=== PATIENT | female | born 1990 | race Caucasian/White ===

== ENCOUNTER 2016-12-15 10:29 | Emergency (ER) | payer OTHER ==
[2016-12-15 10:37] VITALS: BP 107/62; PULSE 106; TEMP 98.8; BMI 32.2
--- NOTE | 2016-12-15 11:10 | PDOC ---
History of Present Illness - General Chief Complaint: Cold Symptoms Stated Complaint: FEVER, BODYACHES Time Seen by Provider: 12/15/16 10:49 History Source: Patient Exam Limitations: No Limitations - History of Present Illness Initial Comments: CHIEF COMPLAINT: 26 y/o afebrile female with no significant PMH c/o bodyaches, fever and dry cough since yesterday. HISTORY OF PRESENT ILLNESS: The patient states that she feels like she has the flu and did not receive the flu shot. Her 1 year old has similar symptoms at home. The patient has not taken anything for her symptoms. She denies earache, BERRY, n/v/d, CP, SOB, abd pain. Vital signs on arrival are within normal limits. REVIEW OF SYSTEMS: GENERAL/CONSTITUTIONAL: +fever to 102. +body aches. No weakness. No weight change. HEAD, EYES, EARS, NOSE AND THROAT: No change in vision. No ear pain or discharge. No sore throat. CARDIOVASCULAR: No chest pain or shortness of breath. RESPIRATORY: +dry cough. No wheezing, or hemoptysis. GASTROINTESTINAL: No abd pain, nausea, vomiting, diarrhea. GENITOURINARY: No dysuria, frequency, or change in urination. MUSCULOSKELETAL: No joint or muscle swelling or pain. No neck or back pain. SKIN: No rash or easy bruising. NEUROLOGIC: No headache, vertigo, loss of consciousness, or loss of sensation. PHYSICAL EXAM: GENERAL: The patient is awake, alert, and fully oriented, non toxic but ill appearing. HEAD: Normal with no signs of trauma. ENT: Pupils equal, round and reactive to light, extraocular movements intact, sclera anicteric, conjunctiva clear. Neck supple. No tonsilar erythema or edema. +nasal congestion. LUNGS: Clear to auscultation bilaterally. Normal excursion. No respiratory distress or use of accessory muscles. CV: RRR, S1/S2, no MRG. Cap refill < 2 sec. ABDOMEN: Soft, non-distended, non-tender even to deep palpation, no hepatomegaly or splenomegaly, no masses. EXTREMITIES: Normal range of motion, no edema. NEUROLOGICAL: Normal speech, normal gait. CN II-XII grossly intact. PSYCH: Normal mood, normal affect. SKIN: Warm, dry, normal turgor, no rashes or lesions noted. Past History - Past Medical History Allergies/Adverse Reactions: Allergies Allergy/AdvReac Type Severity Reaction Status Date / Time No Known Allergies Allergy Verified 12/15/16 10:33 Home Medications: Ambulatory Orders NK [No Known Home Medication] 12/15/16 Asthma: No Cancer: No Cardiac Disorders: No Diabetes: No HTN: No Seizures: No Thyroid Disease: No - Reproductive History (#): 1 Para: 1 Cervical CA: No Dysfunctional Uterine Bleeding: No Ectopic : No Endometrial CA: No Polycystic Ovaries: No Therapeutic (s) & number: No Tubal Ligation: No Spontaneous : 0 - Psycho/Social/Smoking Cessation Hx Anxiety: No Suicidal Ideation: No Smoking Status: Yes Smoking History: Never smoked Have you smoked in the past 12 months: No Number of Cigarettes Smoked Daily: 0 Information on smoking cessation initiated: No Hx Alcohol Use: No Drug/Substance Use Hx: No Substance Use Type: None Hx Substance Use Treatment: No *Physical Exam - Vital Signs Last Vital Signs Temp Pulse Resp BP Pulse Ox 98.8 F 106 H 18 107/62 100 12/15/16 10:33 12/15/16 10:33 12/15/16 10:33 12/15/16 10:33 12/15/16 10:33 Medical Decision Making - Medical Decision Making A/P: 26 y/o afebrile female with flu symptoms. Plan is as follows: 1. Influenza Influenza A&B - negative Will give tylenol for pain Patient given results. Suspect she has a viral URI. Suggested she take tylenol and or Motrin for fever/body aches. Instructed her to take OTC cough medicine if needed, get plenty of rest and fluids and f/;u with her doctor within 1 week. Instructed her to return to the ER with any worsening or concerning symptoms. The patient verbalizes understanding of all instructions, has no further questions and is awaiting discharge. *DC/Admit/Observation/Transfer Diagnosis at time of Disposition: Viral upper respiratory tract infection with cough - Discharge Dispostion Disposition: HOME Condition at time of disposition: Good - Patient Instructions Printed Discharge Instructions: DI for Viral Upper Respiratory Infection -- Adult Additional Instructions: Discharge Instructions: -Your flu swab was negative -Take Tylenol and/or Motrin for fever/body aches -You can take an over the counter cough medicine if needed -Get plenty of rest and drink lots of fluids -Follow up with your doctor within 1 week -Return to the ER with any worsening or concerning symptoms. - Post Discharge Activity Work/School Note: Back to Work
[2016-12-15] MEDS ORDERED: ACETAMINOPHEN 325 MG TABLET (FP) ONE (12:01)
[2016-12-15] MEDS ORDERED: ACETAMINOPHEN 325 MG TABLET (FP) PO ONE (12:02)
== END 2016-12-15 12:15 | disposition home or self-care (01) ==
LOC: JERFT 10:29
DX: J06.9 Acute upper respiratory infection, unspecified (principal); B97.89 Other viral agents as the cause of diseases classified elsewhere
CPT/HCPCS: 87804; 99281-25

== ENCOUNTER 2020-12-17 14:44 | Emergency (ER) | payer OTHER ==
[2020-12-17 14:53] VITALS: BP 129/66; PULSE 95; TEMP 98.5; BMI 40.6
[2020-12-17] MEDS ORDERED: KETOROLAC TROMETHAMINE 60 MG/2 ML VIAL IM ONE (16:05)
[2020-12-17] MEDS ORDERED: morphine CARPU-JECT 4 MG/1 ML DISP.SYRIN IVPUSH ONE (16:06)
[2020-12-17] MEDS ORDERED: morphine CARPU-JECT 4 MG/1 ML DISP.SYRIN IM ONE (16:13)
[2020-12-17] MEDS ORDERED: KETOROLAC TROMETHAMINE 60 MG/2 ML VIAL ONE (16:14)
[2020-12-17] MEDS ORDERED: morphine SULFATE 4 MG/ML VIAL ONE (16:16)
[2020-12-17] MEDS ORDERED: IBUPROFEN 400 MG TABLET (FP) PO ONE ×2 (16:18→16:42)
== END 2020-12-17 16:55 | disposition home or self-care (01) ==
LOC: JERFT 14:44
DX: M79.604 Pain in right leg (principal); M79.605 Pain in left leg
CPT/HCPCS: 99283-25

== ENCOUNTER 2024-04-11 16:26 | Emergency (ER) | payer OTHER ==
[2024-04-11 16:35] VITALS: BP 122/70; PULSE 103; RESP 18; TEMP 98.8; BMI 43.0
[2024-04-11] MEDS ORDERED: METOCLOPRAMIDE HCL INJECTION 10 MG/2 ML VIAL ONE (17:47)
[2024-04-11] MEDS ORDERED: KETOROLAC TROMETHAMINE 15 MG/ML VIAL ONE (17:47)
[2024-04-11] MEDS ORDERED: MAGNESIUM SULFATE IN WATER 2 GM/50 ML IVPB IVPB ONE (17:47)
[2024-04-11] MEDS: KETOROLAC TROMETHAMINE 15 MG/ML VIAL IVPUSH ONE (18:05)
[2024-04-11] MEDS: METOCLOPRAMIDE HCL INJECTION 10 MG/2 ML VIAL IVPUSH ONE (18:10)
[2024-04-11] MEDS: SODIUM CHLORIDE 1,000 ML IV STA (18:15)
[2024-04-11] MEDS: MAGNESIUM SULF 50% (8.12 MEQ/2 ML-1 GM VIAL) IVPB ONE (18:15)
[2024-04-11 18:24] LABS: BASO % 0.4 % (0-2.0); EOS % 0.7 % (0-4.5); HEMATOCRIT 37.5 % (32.4-45.2); HEMOGLOBIN 12.5 GM/dL (10.7-15.3); LYMPH % 27.1 % (8-40); MCH 28.5 pg (25.7-33.7); MCHC 33.4 g/dl (32.0-36.0); MEAN CELL VOLUME 85.2 fl (80-96); MEAN PLT VOLUME 7.9 fl (7.5-11.1); MONO % 5.8 % (3.8-10.2); PLATELET COUNT 347 10^3/uL (134-434); WHITE BLOOD COUNT 8.2 K/mm3 (4.0-10.0)
[2024-04-11 18:33] LABS: INR 1.04 (0.83-1.09)
[2024-04-11 18:35] LABS: ACTIVATED PTT 32.1 SECONDS (25.2-36.5)
[2024-04-11 18:53] LABS: POTASSIUM 3.8 mmol/L (3.5-5.1)
[2024-04-11 18:54] LABS: CALCIUM 9.5 mg/dL (8.5-10.1)
[2024-04-11 18:55] LABS: ALBUMIN 3.8 g/dl (3.4-5.0); BLOOD UREA NITROGEN 12.5 mg/dL (7-18); MAGNESIUM 2.2 mg/dL (1.8-2.4)
[2024-04-11 18:59] LABS: BILIRUBIN,TOTAL 0.2 mg/dL (0.2-1); CREATININE 0.9 mg/dL (0.55-1.3)
[2024-04-11 19:00] LABS: TOT PROT 7.6 g/dl (6.4-8.2)
== END 2024-04-11 21:33 | disposition home or self-care (01) ==
LOC: JER 16:26
PROC: 3E0333Z Introduction of Anti-inflammatory into Peripheral Vein, Percutaneous Approach (ICD-10-PCS; principal; 2024-04-11)
PROC: 3E033GC Introduction of Other Therapeutic Substance into Peripheral Vein, Percutaneous Approach (ICD-10-PCS; 2024-04-11)
PROC: 3E033GC Introduction of Other Therapeutic Substance into Peripheral Vein, Percutaneous Approach (ICD-10-PCS; 2024-04-11)
PROC: 3E0337Z Introduction of Electrolytic and Water Balance Substance into Peripheral Vein, Percutaneous Approach (ICD-10-PCS; 2024-04-11)
DX: R20.0 Anesthesia of skin (principal); R20.2 Paresthesia of skin; R07.89 Other chest pain; R61 Generalized hyperhidrosis
CPT/HCPCS: 36415; 71046-TC-FY; 80053; 82550; 83735; 84484; 84703; 85025; 85610; 85730; 93005; 93010; 99285-25

== ENCOUNTER 2024-12-30 13:13 | Day surgery (SDC) | payer OTHER ==
[2024-12-30] MEDS: FERRIC CARBOXYMALTOSE 750 MG in SODIUM CHLORIDE 250 ML IVPB SCH (13:51)
[2024-12-30 16:23] VITALS: BP 110/68; PULSE 79; RESP 18; TEMP 98.4
== END 2024-12-30 16:24 | disposition home or self-care (01) ==
LOC: FINFUSION 13:13 → FM/S 13:14 → FINFUSION 16:24
PROVIDERS: ATTEND Family Medicine
PROC: 3E033GC Introduction of Other Therapeutic Substance into Peripheral Vein, Percutaneous Approach (ICD-10-PCS; principal; 2024-12-30)
DX: D50.9 Iron deficiency anemia, unspecified (principal)
CPT/HCPCS: 96365; J1439

== ENCOUNTER 2025-01-06 15:57 | Day surgery (SDC) | payer OTHER ==
[2025-01-06 16:51] VITALS: TEMP 98.9
[2025-01-06] MEDS: FERRIC CARBOXYMALTOSE 750 MG in SODIUM CHLORIDE 250 ML IVPB ONE (17:23)
[2025-01-06 18:14] VITALS: BP 124/70; PULSE 89; RESP 18
== END 2025-01-06 18:15 | disposition home or self-care (01) ==
LOC: FM/S 15:57 → FINFUSION 15:57
PROVIDERS: ATTEND Family Medicine
PROC: 3E033GC Introduction of Other Therapeutic Substance into Peripheral Vein, Percutaneous Approach (ICD-10-PCS; principal; 2025-01-06)
DX: D50.9 Iron deficiency anemia, unspecified (principal)
CPT/HCPCS: 81025; 96365; J1439